=== PATIENT | female | born 1955 | race Caucasian/White ===

== ENCOUNTER → 2017-08-26 | Outpatient (CLI) | payer BC ==
--- NOTE | 2017-08-26 09:06 | RAD ---
DATE: 08/26/2017 EXAM: DIGITAL SCREEN BILAT W/CAD HISTORY: Routine screening COMPARISON: 11/15/2014, 11/12/2014 This study was interpreted with the benefit of Computerized Aided Detection (CAD). The breast parenchyma shows scattered fibroglandular densities. Breast parenchyma level B. FINDINGS: No new or enlarging breast densities are seen. There are stable lymph node type densities in the posterolateral aspect of the right breast. No suspicious microcalcifications are evident. IMPRESSION: Stable mammograms without evidence of malignancy. BI-RADS CATEGORY: 2 BENIGN FINDING(S) RECOMMENDED FOLLOW-UP: 12M 12 MONTH FOLLOW-UP PQRS compliance statement: Patient information was entered into a reminder system with a target due date for the next mammogram. Mammography is a sensitive method for finding small breast cancers, but it does not detect them all and is not a substitute for careful clinical examination. A negative mammogram does not negate a clinically suspicious finding and should not result in delay in biopsying a clinically suspicious abnormality. "Our facility is accredited by the [employer] Mammography [employer]."
== END | disposition home or self-care (01) ==
LOC: MAMMO 07:57
PROVIDERS: ATTEND Specialist
DX: Z12.31 Encounter for screening mammogram for malignant neoplasm of breast (principal)
CPT/HCPCS: 77067

== ENCOUNTER → 2018-10-13 | Outpatient (CLI) | payer BC ==
--- NOTE | 2018-10-13 10:30 | RAD ---
Left clavicle, 2 views, 10/13/2018: HISTORY: Lump No fracture or destructive bony lesion is seen. There is mild spurring at the AC joint. There is a 4-5 mm smooth rounded phlebolith-like radiopacity projected over the soft tissues in the supraclavicular region medially. IMPRESSION: 1. Mild degenerative change at the AC joint. 2. No acute bony abnormality is detected. Electronically signed by: Paulino Herndon MD (10/13/2018 10:26 AM) [facility]
== END | disposition home or self-care (01) ==
LOC: DXRAD 09:06
PROVIDERS: ATTEND Specialist
DX: M19.012 Primary osteoarthritis, left shoulder (principal)
CPT/HCPCS: 73000

== ENCOUNTER → 2019-05-16 | Outpatient (CLI) | payer BC ==
--- NOTE | 2019-05-17 17:16 | RAD ---
DATE: 05/16/2019 EXAM: DIGITAL SCREEN BILAT W/CAD HISTORY: Routine screening COMPARISON: 11/12/2014, 08/26/2017 mammographic exams This study was interpreted with the benefit of Computerized Aided Detection (CAD). Breast Density: HETERO The breast parenchyma is heterogenously dense, which could reduce sensitivity of mammography. Breast parenchyma level C. FINDINGS: No suspicious calcifications, masses, or distortion. Benign appearing lymph nodes are present. IMPRESSION: Stable BI-RADS CATEGORY: 1 NEGATIVE RECOMMENDED FOLLOW-UP: 12M 12 MONTH FOLLOW-UP PQRS compliance statement: Patient information was entered into a reminder system with a target due date for the next mammogram. Mammography is a sensitive method for finding small breast cancers, but it does not detect them all and is not a substitute for careful clinical examination. A negative mammogram does not negate a clinically suspicious finding and should not result in delay in biopsying a clinically suspicious abnormality. "Our facility is accredited by the [employer] Mammography [employer]."
== END | disposition home or self-care (01) ==
LOC: MAMMO 08:43
PROVIDERS: ATTEND Specialist
DX: Z12.31 Encounter for screening mammogram for malignant neoplasm of breast (principal)
CPT/HCPCS: 77067

== ENCOUNTER → 2020-09-25 | Outpatient (CLI) | payer MEDICARE ==
--- NOTE | 2020-09-25 16:32 | RAD ---
INDICATION: Osteoporosis screening. Postmenopausal evaluation COMPARISON: January 29, 2009 TECHNIQUE: Bone densitometry was performed through the lumbar spine and proximal femur. FINDINGS: Lumbar Spine: BMD: 1.2 T-Score: 0.2 Decreased by 6 percent from prior Proximal Femur: BMD: 0.99 T-Score: 0.3 Decreased by 5 percent from prior IMPRESSION: 1. Lumbar spine falls within the normal range. 2. Proximal femur falls within the normal range. Electronically signed by: Fercho Ellis MD (09/25/2020 4:30 PM) [id number]
== END ==
LOC: DXRAD 09:56
PROVIDERS: ATTEND Specialist
DX: Z13.820 Encounter for screening for osteoporosis (principal); N95.1 Menopausal and female climacteric states; N95.9 Unspecified menopausal and perimenopausal disorder
CPT/HCPCS: 77080